=== PATIENT | female | born 1925 | race Caucasian/White ===

== ENCOUNTER → 2017-01-15 | Outpatient (CLI) | payer MEDICARE, BC ==
[~2017-01-15] MED LIST: ALEVE220 MG PO; BIOTIN-D0.5 GM PO; BIOTIN5000 MCG PO; BYSTOLIC10 MG PO; CALCIUM CITRAT1 EAC6 PO; CELEBREX200 MG PO; CIPRO500 MG PO; COZAAR25 MG PO; ELAVIL25 MG PO; FLAGYL500 M1 PO; FLECAINIDE ACE100 MG PO; IMODIUM LIQ1 MG/5 ML PO; LOPRESSOR25 MG PO; MAG-OX-400(241400 MG PO; MULTAQ400 MG PO; NEXIUM20 MG PO; NEXIUM40 MG PO; PRADAXA75 MG PO; PRENATAL 1+1)(P1 TAB PO; PROTONIX40 MG PO; REFRESH OPTIVE OPHTH; THERA-VITE W/ B1 TAB PO; THERAGRAN-M1 TAB PO; TOPROL XL25 MG PO; TYLENOL EXTRA500 MG PO; ULTRAM50 MG PO; VITAMIN D1000 UNI1 PO; WELCHOL 625MG625 MG PO; XALATAN2.5 ML OPHTH; XIFAXAN550 MG PO; ZOFRAN4 MG PO
--- NOTE | ~2017-01-15 | ENPV ---
Vascular Lower Extremities DVT Study Procedure Demographics Patient Name DEREK FLORES Date of Study 01/15/2017 Patient Number [id number] Gender Female Date of 1925 Age 89 Visit Number [id number] Height Accession Number [id number] Weight Room Number BSA BMI Referring Alen Reynoso MD Interpreting Aden Forbes MD Physician Physician Physician Ordering Physician Oliver Young MD [employer] Frieda Kitchen T, [facility] Conclusions Summary No evidence of deep vein thrombosis or superficial thrombophlebitis in the left lower extremity . Right CFV and GSV imaged for comparison and are negative, Procedure Type of Study: Veins:Lower Extremities DVT Study, Lower Extremity Left. Indications for Study:Pain. Appropriate Use Criteria:6 Patient Status:Routine. Study Location:Vascular Lab. Technical Quality:Good visualization. - Preliminary reported to:Dr. Griffin nurse at 1315. Velocities are measured in cm/s ; Diameters are measured in cm Right Lower Extremities DVT Study Measurements Right 2D and Doppler Measurements + + + + +------+------+ + !Location !Visualized!Compressibility!Thrombosis!Signal!Reflux!Reflux ! ! ! ! ! ! ! !(sec) ! + + + + +------+------+ + !GSV Thigh !Yes !Yes !None !Phasic! ! ! + + + + +------+------+ + !Common !Yes !Yes !None !Phasic! ! ! !Femoral ! ! ! ! ! ! ! + + + + +------+------+ + Left Lower Extremities DVT Study Measurements Left 2D and Doppler Measurements + + + + +------+------+ + !Location !Visualized!Compressibility!Thrombosis!Signal!Reflux!Reflux ! ! ! ! ! ! ! !(sec) ! + + + + +------+------+ + !GSV Thigh !Yes !Yes !None !Phasic! ! ! + + + + +------+------+ + !Common !Yes !Yes !None !Phasic! ! ! !Femoral ! ! ! ! ! ! ! + + + + +------+------+ + !Prox !Yes !Yes !None !Phasic! ! ! !Femoral ! ! ! ! ! ! ! + + + + +------+------+ + !Mid Femoral!Yes !Yes !None !Phasic! ! ! + + + + +------+------+ + !Dist !Yes !Yes !None !Phasic! ! ! !Femoral ! ! ! ! ! ! ! + + + + +------+------+ + !Popliteal !Yes !Yes !None !Phasic! ! ! + + + + +------+------+ + !Gastroc !Yes !Yes !None !Phasic! ! ! + + + + +------+------+ + !PTV !Yes !Yes !None !Phasic! ! ! + + + + +------+------+ + !Peroneal !Yes !Yes !None !Phasic! ! ! + + + + +------+------+ + Signature dtt: ISH GALAVN: 01/15/17 1255 Physician Self Edit
== END | disposition disaster alternative care site (69) ==
LOC: GCAR 12:43
DX: M25.562 Pain in left knee (principal)